=== PATIENT | male | born 1970 | race Caucasian/White ===

== ENCOUNTER 2018-06-15 11:00 | Emergency (ER) | payer OTHER ==
[~2018-06-15] VITALS: Ht 170.2 cm; Wt 95.7 kg
[~2018-06-15 11:00] MED LIST: PHEN100C3 PO; QUET200T PO
[2018-06-15 11:05] VITALS: BP 107/74
--- NOTE | 2018-06-15 11:05 | NUR ---
PT AMBULATES TO BED 3
--- NOTE | 2018-06-15 11:11 | NUR ---
48YO M TO ER FOR MOUTH PAIN X3DAYS. PT WITH ENLARGED AND INFLAMED SUBLINGUAL FOLD ON RIGHT SIDE. PT STATES DIFFICULTY EATING AND DRINKING DUE TO PAIN. MULTIPLE MISSING TEETH AND TOOTH DISCOLORATION. PT STATE EXTENSIVE TOBACCO USE HX. DRY CRACKED LIPS NOTED, PT DENIES ANY SOB, CP, FEVER, COUGH AT THIS TIME. RR EVEN AND UNLABORED, LS CLEAR, ABD SOFT NON TENDER. ER MD MADE AWAER, WILL CONTINUE TO MONITOR. PT POSITIONED FOR COMFORT
--- NOTE | 2018-06-15 11:37 | NUR ---
Patient being evaluated by physician at bedside.
[2018-06-15] MEDS ORDERED: MORPHINE SULFATE 4 MG/ML SYR IM ONE (11:45)
[2018-06-15 12:14] VITALS: BP 112/76
--- NOTE | 2018-06-15 12:14 | NUR ---
Patient discharged with v/s stable. Written and verbal after care instructions given and explained. Patient alert, oriented and verbalized understanding of instructions. Ambulatory with steady gait. All questions addressed prior to discharge. ID band removed. Patient advised to follow up with PMD. Rx of PENICILLIN VK , MOTRIN given. Patient educated on indication of medication including possible reaction and side effects. Opportunity to ask questions provided and answered.
== END 2018-06-15 12:14 | disposition home or self-care (01) ==
LOC: MED 11:00
DX: K13.79 Other lesions of oral mucosa (principal); F17.200 Nicotine dependence, unspecified, uncomplicated; Z86.73 Personal history of transient ischemic attack (TIA), and cerebral infarction without residual deficits; Z90.89 Acquired absence of other organs; Z79.899 Other long term (current) drug therapy
CPT/HCPCS: 96372; 99283; J2270

== ENCOUNTER 2018-08-16 15:56 | Emergency (ER) | payer OTHER ==
[~2018-08-16] VITALS: Ht 373.4 cm; Wt 95.3 kg
[2018-08-16 16:15] VITALS: BP 127/89
--- NOTE | 2018-08-16 16:25 | NUR ---
48 Y/O M BIB C/O MOUTH PAIN X 1 WK. PT STATES HE IS ALSO FEELING WEEK AND CHILLS, DIAPHORTIC, BODY ACHES X 3 DAYS AGO. 10/10 PAIN SCALE. PT ALSO STATES HE HAS STITICHES IN THE MOUTH, HAD EXTRACTION OF 11 TEETH. AAOX4, PERRL, WITH EVEN AND STEADY GAIT; LUNGS CLEAR BL, BREATHING UNLABORED; HR EVEN AND REGULAR, BL PERIPHERAL PULSES PRESENT; VSS; PATIENT POSITIONED FOR COMFORT; HOB ELEVATED; BEDRAILS UP X2; BED DOWN. PMH: EPILEPSY, PANCREATITIS, SPODILOSIS, PLANTOR TETINITIS, ARTHRITIS RX; AMOXICILLIN, NORCO, MOTRIN, AMITRIPTILINE
[2018-08-16] MEDS ORDERED: MORPHINE SULFATE 4 MG/ML SYR IVP ONE (16:40)
[2018-08-16] MEDS ORDERED: CLINDAMYCIN 600 MG/4 ML VIAL IM ONE (16:40)
--- NOTE | 2018-08-16 17:37 | NUR ---
Patient discharged with v/s stable. Written and verbal after care instructions given and explained. Patient alert, oriented and verbalized understanding of instructions. Ambulatory with steady gait. All questions addressed prior to discharge. ID band removed. Patient advised to follow up with PMD. Rx of Clindamycin 300mg, Preidex 0.12%, NOrco #10, and Albuterol 90mcg given. Patient educated on indication of medication including possible reaction and side effects. Opportunity to ask questions provided and answered.
[2018-08-16 17:38] VITALS: BP 121/85
== END 2018-08-16 17:37 | disposition home or self-care (01) ==
LOC: MED 15:56
DX: R05 Cough (principal); R06.2 Wheezing; R50.9 Fever, unspecified; M79.10 Myalgia, unspecified site; R51 Headache; R63.0 Anorexia; Z88.5 Allergy status to narcotic agent; Z88.8 Allergy status to other drugs, medicaments and biological substances; Z79.899 Other long term (current) drug therapy
CPT/HCPCS: 96372; 99283; J2270; J3490

== ENCOUNTER 2018-12-29 08:46 | Emergency (ER) | payer OTHER ==
[~2018-12-29] VITALS: Ht 170.2 cm; Wt 81.6 kg
[2018-12-29 08:48] VITALS: BP 117/75
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
--- NOTE | 2018-12-29 09:32 | NUR ---
pt taken to CT
--- NOTE | 2018-12-29 09:55 | NUR ---
Patient appears to be resting comfortably in bed. Vital Signs within normal limits. Respirations even and unlabored. NECK PAIN 5/10 AT THIS TIME. WILL CONTINUE TO MONITOR.
[2018-12-29 10:17] VITALS: BP 115/72
--- NOTE | 2018-12-29 10:17 | NUR ---
Patient discharged with v/s stable. Written and verbal after care instructions given and explained. Patient alert, oriented and verbalized understanding of instructions. Ambulatory with steady gait. All questions addressed prior to discharge. ID band removed. Patient advised to follow up with PMD. Rx of NARCAN SPRAY& NORCO given. Patient educated on indication of medication including possible reaction and side effects. Opportunity to ask questions provided and answered.
== END 2018-12-29 10:17 | disposition home or self-care (01) ==
LOC: MED 08:46
DX: S16.1XXA Strain of muscle, fascia and tendon at neck level, initial encounter (principal); Z86.73 Personal history of transient ischemic attack (TIA), and cerebral infarction without residual deficits; Z79.899 Other long term (current) drug therapy; Z88.6 Allergy status to analgesic agent; Z88.8 Allergy status to other drugs, medicaments and biological substances; W20.8XXA Other cause of strike by thrown, projected or falling object, initial encounter; Y93.89 Activity, other specified; Y92.89 Other specified places as the place of occurrence of the external cause; Y99.8 Other external cause status
CPT/HCPCS: 72125; 99284